=== PATIENT | female | born 1960 | race Hispanic/Latino ===

== ENCOUNTER 2016-11-16 17:14 | Observation (INO) | payer OTHER ==
[~2016-11-16] VITALS: Ht 162.6 cm; Wt 73.8 kg
[~2016-11-16 17:14] MED LIST: BENADRYL25 MG PO; DIPHENHYDRAM OR; FLEXERIL PO; MEDDOSEPAK PO; NAPROSYN500 MG OR; NAPROSYN500 MG PO
--- NOTE | 2016-11-16 17:32 | NUR ---
PT ARRIVES BY EMS WITH COMPLAINT OF SIGNIFICANT CHEST PAIN X 15 MINUTES, NOW MINIMAL AFTER ASA AND NTG. PT SEEN BY EDP.
[2016-11-16 18:14] LABS: ALBUMIN 4.3 g/dL (3.2-5.0); ALKALINE PHOSPHATASE 126 u/l (38-126); ANION GAP 18 (6-22 (CALC)); BILIRUBIN, TOTAL 0.5 mg/dL (0.0-1.4); BUN 12 mg/dL (7-17); BUN/CREATININE RATIO 16 (12-20 (CALC)); CALCIUM 9.2 mg/dL (8.4-10.2); CARBON DIOXIDE 22 mmol/l (22-30); CHLORIDE 105 mmol/l (95-108); CREATININE 0.7 mg/dL (0.5-1.0); GFR > 60 ML/MIN (>=60 (CALC)); GFR FOR AFR.AMER. > 60 ML/MIN (>=60 (CALC)); GLUCOSE 112 mg/dL (65-105); POTASSIUM 3.7 mmol/l (3.5-5.1); SGOT/AST 32 u/l (14-36); SGPT/ALT 49 u/l (9-52); SODIUM 142 mmol/l (137-146); TOTAL PROTEIN 7.4 g/dL (6.3-8.2)
[2016-11-16 18:20] LABS: HEMATOCRIT 41.7 % (37.0-47.0); HEMOGLOBIN 13.9 g/dl (12.0-16.0); IMMATURE GRANULOCYTES 0.3 % (0.0-1.0); MEAN CELL VOLUME 90.1 fL CALC (80.0-100.0); MEAN CORPUSCULAR HGB CONC 33.3 g/L CALC (32.0-36.0); NEUT# 3.34 thou/uL (2.00-7.15); RED BLOOD COUNT 4.63 mill/uL (4.20-5.60); RED CELL DISTRI WIDTH 12.4 % (11.5-15.5)
--- NOTE | 2016-11-16 18:29 | NUR ---
SBAR PRINTED TO FLOOR
--- NOTE | 2016-11-16 18:54 | NUR ---
REPORT PROVIDED TO BABATUNDE, PT TO FLOOR SOON. PT SEEN COMFORTABLE, NO REPORT OF PAIN.
--- NOTE | 2016-11-16 19:55 | NUR ---
PT. ARRIVED TO THE FLOOR VIA STRETCHER ACCOMPANIED BY ER NURSE, BRE AND DAMARIS. PT. STABLE, NO DISTRESS NOTED. ASSESSMENT COMPLETED. PT. ORIENTED TO CALL LIGHT, ROOM, AND POC, VERBALIZES UNDERSTANDING. TELEMETRY IN PLACE. IV SITE PATENT AND SL. ENCOURAGED TO CALL FOR ANY NEEDS. CALL LIGHT IS IN REACH. WILL CONTINUE TO MONITOR.
--- NOTE | 2016-11-16 20:03 | NUR ---
TAKEN UPSTAIRS TO ROOM 273 VIA [facility].
[2016-11-16 20:23] VITALS: BP 153/71
--- NOTE | 2016-11-16 23:02 | NUR ---
RECEIVED PHONE CALL PT'S HR IS IN THE 40'S. PT. SITTING UP IN BED. ASYMPTOMATIC. RADIAL HR 46 AT THIS TIME. PT. DENIES CP. WILL CONTINUE TO MONITOR.
[2016-11-17 00:10] VITALS: BP 112/68
--- NOTE | 2016-11-17 01:10 | NUR ---
PER [facility], PT'S HR DROPPED TO 39 FOR A FEW SECONDS NOW BACK UP TO THE 40'S. PT. IS ASYMPTOMATIC. HR 42 AT THIS TIME, DENIES CP. WILL CONTINUE TO MONITOR.
--- NOTE | 2016-11-17 02:12 | NUR ---
DR. HUI NOTIFIED OF PT'S HR FLUCTUATING FROM HIGH 30'S TO LOW 40'S. NEW ORDER FOR AM LAB. WILL CONITNUE TO MONITOR PT.
[2016-11-17 03:50] VITALS: BP 119/70
--- NOTE | 2016-11-17 05:40 | NUR ---
PT. SITTING UP IN BED ON HER PHONE, DENIES NEEDS/PAIN. ENCOURAGED TO CALL FOR ANY NEEDS. CALL LIGHT IS IN REACH.
[2016-11-17 06:07] LABS: CHOLESTEROL HDL RATIO 4.5 (<4.4 (CALC))
[2016-11-17 06:11] LABS: ANION GAP 14 (6-22 (CALC)); BUN 10 mg/dL (7-17); BUN/CREATININE RATIO 14 (12-20 (CALC)); CALCIUM 9.1 mg/dL (8.4-10.2); CARBON DIOXIDE 26 mmol/l (22-30); CHLORIDE 107 mmol/l (95-108); CREATININE 0.7 mg/dL (0.5-1.0); GFR > 60 ML/MIN (>=60 (CALC)); GFR FOR AFR.AMER. > 60 ML/MIN (>=60 (CALC)); GLUCOSE 96 mg/dL (65-105); MAGNESIUM 2.1 mg/dL (1.6-2.3); POTASSIUM 4.1 mmol/l (3.5-5.1); SODIUM 142 mmol/l (137-146)
[2016-11-17 06:37] LABS: TSH, 3RD GENERATION 8.02 uIU/mL (0.47 - 4.68)
[2016-11-17 08:00] VITALS: BP 128/73
--- NOTE | 2016-11-17 08:00 | NUR ---
ASSESSMENT IS COMPLTED: IV SITE IS FREE FROM REDNESS OR EDEMA. TELE MONITOR IN PLACE. NO DISTRESS NOTED; CONTINUE TO OSBERVE AND MONITOR.
--- NOTE | 2016-11-17 10:00 | NUR ---
PT HAS BEEN RELAXING AND TALKING ON THE PHONE WAITING FOR THE DR TO COME AND SEE HER. CONTINUE TO OSBERVE AND MONITOR.
[2016-11-17 11:19] VITALS: BP 173/72
[2016-11-17] MEDS ORDERED: AMLODIPINE BESYL5 MG PO (11:39)
[2016-11-17] MEDS ORDERED: LOSARTAN POT50 MG PO (11:40)
[2016-11-17] MEDS ORDERED: PROTONIX40 M2 PO (11:41)
--- NOTE | 2016-11-17 12:28 | NUR ---
PT AMBULATED OFF THE UNIT FOR DISCHARGE AT THIS TIME. NO DISTRESS NOTED. IV SITE WAS DISCONTINUED CATHETER INTACT. TELE MONITOR OFF PT. CONTINUE TO OSBERVE AND MONITOR.
== END 2016-11-17 12:28 | disposition home or self-care (01) | DRG 313 ==
LOC: ED 17:14 → ED-I 18:21 → ED 18:33 → MS2 18:34
PROVIDERS: Family Medicine; ADMIT Internal Medicine; ATTEND Internal Medicine
DX: R07.9 Chest pain, unspecified (principal); I10 Essential (primary) hypertension; E78.5 Hyperlipidemia, unspecified; K21.9 Gastro-esophageal reflux disease without esophagitis; R94.6 Abnormal results of thyroid function studies
CPT/HCPCS: G0378; J1650

== ENCOUNTER 2016-11-30 11:30 | Emergency (ER) | payer OTHER ==
[~2016-11-30] VITALS: Ht 162.6 cm; Wt 73.6 kg
[~2016-11-30 11:30] MED LIST changes: +AMLODIPINE BESYL5 MG PO; +LOSARTAN POT50 MG PO; +PROTONIX40 M2 PO
[2016-11-30] MEDS ORDERED: CIPROFLOXACN500 MG PO (12:32)
[2016-11-30 13:03] VITALS: BP 145/80
== END 2016-11-30 13:07 | disposition home or self-care (01) | DRG 605 ==
LOC: ED 11:30
DX: S91.332A Puncture wound without foreign body, left foot, initial encounter (principal); W26.8XXA Contact with other sharp object(s), not elsewhere classified, initial encounter; Y93.89 Activity, other specified; Y92.79 Other farm location as the place of occurrence of the external cause

== ENCOUNTER 2018-11-14 14:48 | Emergency (ER) | payer OTHER ==
[~2018-11-14] VITALS: Ht 162.6 cm; Wt 70.0 kg
[~2018-11-14 14:48] MED LIST changes: +CIPROFLOXACN500 MG PO
[2018-11-14 15:50] VITALS: BP 172/92
== END 2018-11-14 15:50 | disposition home or self-care (01) | DRG 554 ==
LOC: ED 14:48
DX: M19.041 Primary osteoarthritis, right hand (principal)